=== PATIENT | male | born 1990 | race African-American/Black ===

== ENCOUNTER 2016-11-02 15:18 | Emergency (ER) | payer OTHER ==
[~2016-11-02 15:18] MED LIST: CIPRO PO
== END 2016-11-02 16:35 | disposition home or self-care (01) ==
LOC: CED 15:18 → CFTX 16:05 → CED 16:05 → CFTX 16:35
DX: Z20.2 Contact with and (suspected) exposure to infections with a predominantly sexual mode of transmission (principal); R36.9 Urethral discharge, unspecified; F17.210 Nicotine dependence, cigarettes, uncomplicated
CPT/HCPCS: 96372; 99283; J0696